=== PATIENT | male | born 1985 | race Hispanic/Latino ===

== ENCOUNTER 2023-05-16 10:48 | Emergency (ER) | payer OTHER ==
[~2023-05-16] VITALS: Ht 152.4 cm; Wt 71.7 kg
[2023-05-16] MEDS ORDERED: HYDROCODONE/ACETAMINOPHEN 5/325 MG TAB PO ONE (11:30)
[2023-05-16] MEDS ORDERED: TETANUS/DIPHTHERIA TOXOID [ADULT] 0.5 ML VIAL IM ONE (11:30)
[2023-05-16] MEDS ORDERED: IBUPROFEN 600 MG TABLET PO ONE (11:30)
[2023-05-16] MEDS ORDERED: ONDANSETRON ODT 4MG TAB SL ONE (11:30)
[2023-05-16] MEDS ORDERED: CEPHALEXIN 500 MG CAPSULE PO ONE (11:30)
[2023-05-16] MEDS ORDERED: CEPH500T PO (12:47)
[2023-05-16] MEDS ORDERED: IBUP-2070 PO (12:47)
[2023-05-16 14:07] VITALS: BP 122/81; PULSE 66; RESP 16
== END 2023-05-16 14:09 | disposition home or self-care (01) ==
LOC: EDH 10:48
DX: S01.511A Laceration without foreign body of lip, initial encounter (principal); X58.XXXA Exposure to other specified factors, initial encounter; Y93.89 Activity, other specified; Y92.89 Other specified places as the place of occurrence of the external cause; Y99.8 Other external cause status
CPT/HCPCS: 12052; 70486; 90471; 90714